=== PATIENT | female | born 1995 | race Caucasian/White ===

== ENCOUNTER 2021-07-17 19:38 | Emergency (ER) | payer OTHER ==
--- NOTE | 2021-07-17 19:55 | EDM.PDOC ---
ED HPI GENERAL MEDICAL PROBLEM - General Stated Complaint: BODY ACHES Time Seen by Provider: 07/17/21 19:55 Source of Information: Reports: Patient History Limitations: Reports: No Limitations - History of Present Illness INITIAL COMMENTS - FREE TEXT/NARRATIVE: Patient comes emergency department today from home with complaints of generalized body aches cough congestion sinus drainage and congestion. This patient who is not Covid vaccine for influenza A. The last day or so she has has generalized body aches. No fatigue no arthralgias. No headache no fever no chills. She has had little bit of chest congestion without a cough. Cough is dry hacking nonproductive. No sore throat. No difficulty swallowing. No abdominal pain nausea or vomiting. No hematuria dysuria urinary frequency. No black tarry stools or diarrhea. No rash sores or lesions. She has been eating and drinking appropriately. She has had quite a bit of nasal drainage as well as congestion. No pressure or pain in her sinuses. - Related Data Allergies Allergy/AdvReac Type Severity Reaction Status Date / Time cefixime [From Suprax] Allergy Other Verified 07/17/21 20:14 clindamycin Allergy Other Verified 07/17/21 20:14 ED ROS GENERAL - Review of Systems Review Of Systems: Comprehensive ROS is negative, except as noted in HPI. ED EXAM, GENERAL - Physical Exam Exam: See Below Exam Limited By: No Limitations General Appearance: Alert, WD/WN, No Apparent Distress Eye Exam: Bilateral Eye: EOMI, PERRL Ears: Normal External Exam, Normal TMs Nose: Other (Turbinates bilaterally are pale not boggy. There is quite a bit of thick stringy white mucus within the sinus cavity. No exudate or erythema.). No: Nasal Flaring Throat/Mouth: Normal Inspection, Normal Lips, Normal Teeth, Normal Gums, Normal Oropharynx, Normal Voice, No Airway Compromise Head: Atraumatic, Normocephalic Neck: Normal Inspection, Supple, Non-Tender, Full Range of Motion Respiratory/Chest: No Respiratory Distress, Lungs Clear, Normal Breath Sounds, No Accessory Muscle Use, Chest Non-Tender Cardiovascular: Normal Peripheral Pulses, Regular Rate, Rhythm GI/Abdominal: Normal Bowel Sounds, Soft, Non-Tender (Female) Exam: Deferred Rectal (Female) Exam: Deferred Back Exam: Normal Inspection Extremities: Normal Inspection, No Pedal Edema Neurological: Alert, Oriented, CN II-XII Intact, Normal Cognition, No Motor/Sensory Deficits Psychiatric: Normal Affect, Normal Mood Skin Exam: Warm, Dry, Intact, Normal Color Course - Vital Signs Last Recorded V/S: Last Vital Signs Temp 98.2 F 07/17/21 20:09 Pulse 93 07/17/21 20:09 Resp 19 07/17/21 20:09 BP 146/76 H 07/17/21 20:09 Pulse Ox 98 07/17/21 20:09 - Orders/Labs/Meds Labs: Laboratory Tests 07/17/21 Range/Units 19:55 Influenza Type A RNA Positive H (NEGATIVE) RSV RNA ([facility]) Negative (NEGATIVE) Influenza Type B RNA Negative (NEGATIVE) SARS-CoV-2 RNA ([facility]ENN[facility]ER) Negative (NEGATIVE) Meds: Medications Discontinued Medications Generic Name Dose Route Start Last Admin Trade Name Devon PRN Reason Stop Dose Admin Acetaminophen 1,000 mg 07/17/21 20:59 Acetaminophen 500 Mg Tab PO 07/17/21 21:00 ONETIME ONE - Re-Assessments/Exams Free Text/Narrative Re-Assessment/Exam: Influenza positive. Tylenol as she developed a fever while she was here. I instructed the patient that she has influenza A. Symptomatic management is paramount at this time. I also advised that yearly flu vaccination is very important as well. There is no indication at this time for Tamiflu for this low risk patient. We will discharge her home. Return if anything new or worse. Departure - Departure Time of Disposition: 20:59 Disposition: Home, Self-Care 01 Clinical Impression: Influenza A - Discharge Information Instructions: Influenza, Adult, [id number], Fever, Adult, [id number] Referrals: PCP,None [Primary Care Provider] - Forms: ED Department Discharge, ED Return to Work/School Form Additional Instructions: Stay home with influenza until fever free 48 hrs. Tylenol and or Ibuprofen as needed for pain fever discomfort. Push oral fluids as much as possible. If you are not urinating every 2 hours you are not drinking enough fluids. Eat small frequent meals. Vit D OTC daily. Flonase OTC for nasal congestion and drainage. Return if new or worsening symptoms. Follow up with PCP this week if concerns.
[2021-07-17 20:50] LABS: CORONAVIRUS COVID-19 NAA NEGATIVE (NEGATIVE)
[2021-07-17 20:51] LABS: RESPIRATORY SYNCYTIAL VIR NAA NEGATIVE (NEGATIVE)
[2021-07-17] MEDS ORDERED: Acetaminophen 500 MG Tab PO ONE (20:59)
== END 2021-07-17 21:06 | disposition home or self-care (01) ==
LOC: VM.ED 19:38
DX: J10.1 Influenza due to other identified influenza virus with other respiratory manifestations (principal); Z88.1 Allergy status to other antibiotic agents; Z20.822 Contact with and (suspected) exposure to COVID-19
CPT/HCPCS: 0241U; 99283